=== PATIENT | male | born 1960 | race Caucasian/White ===

== ENCOUNTER 2022-01-21 08:53 | Day surgery (SDC) | payer MEDICAID ==
[~2022-01-21] VITALS: Ht 175.3 cm; Wt 97.5 kg
[2022-01-21] MEDS ORDERED: SIMETHICONE 40 MG/0.6 ML ML ONE (10:30)
[2022-01-21] MEDS ORDERED: MEPERIDINE 100 MG INJ. 100 MG/ML VIAL ONE (10:30)
[2022-01-21] MEDS ORDERED: MIDAZOLAM HCL 5 MG/5 ML VIAL ONE (10:31)
[2022-01-21 14:44] VITALS: BP_SYST 118
== END 2022-01-21 12:20 | disposition home or self-care (01) ==
LOC: SDS 08:53 → SMU 08:57 → SDS 12:20
PROVIDERS: ATTEND Internal Medicine Gastroenterology
DX: Z12.11 Encounter for screening for malignant neoplasm of colon (principal); D12.2 Benign neoplasm of ascending colon; D12.8 Benign neoplasm of rectum; K64.8 Other hemorrhoids; R03.0 Elevated blood-pressure reading, without diagnosis of hypertension; Z20.822 Contact with and (suspected) exposure to COVID-19; Z79.899 Other long term (current) drug therapy
CPT/HCPCS: 45385; 87426; 36415; 88305; 99153; 99152; G0378; J2250; J2175